=== PATIENT | female | born 2000 | race Caucasian/White ===

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

== ENCOUNTER 2023-11-09 05:48 | Emergency (ER) | payer SELFPAY ==
[2023-11-09] VITALS (39 sets, daily range): BP systolic 117–145; BP diastolic 69–98; PULSE 48–96; RESP 16–18; TEMP 36.2; O2SAT 94–100; BMI 29.5
[2023-11-09] MEDS: ONDANSETRON 4 MG/2 ML INJ IV ×2 (05:57→10:42)
--- NOTE | 2023-11-09 06:05 | ED_ITS ---
HPI - Abdominal Pain <Bailey Yuan, DO - Last Filed: 11/09/23 23:08> General Chief Complaint: Abdominal Pain Stated Complaint: rt side abd pain, throwing up Time Seen by Provider: 11/09/23 05:57 Source: patient and family Mode of arrival: Ambulatory History of Present Illness HPI narrative: Patient is a 23-year-old female without significant past medical history presenting with sudden onset right-sided flank pain. She reports that she woke 430 with severe pain. It seems she radiating from her flank to her groin. She has never had kidney stones before. The pain is so intense she has thrown up a handful of times. She tried to take ibuprofen but ultimately threw that up as. She was fine when she went to bed and having normal day yesterday. He denies any painful frequent urination. Related Data Home Medications Medication Instructions Recorded Confirmed albuterol sulfate 90 mcg/actuation 2 puff INH ##17 05/29/12 aerosol inhaler (Proventil HFA) fluticasone propionate 110 1 puff INH BID ##12 05/29/12 mcg/actuation HFA aerosol inhaler (Flovent HFA) fluticasone propionate 50 50 mcg INH BID #60 doses 05/29/12 mcg/actuation blister powder for inhalation (Flovent Diskus) cetirizine 5 mg tablet ##0 11/02/12 Previous Rx's Medication Instructions Recorded clotrimazole 1 % topical cream 1 applictn topical BID #30 grams 02/26/19 mupirocin 2 % topical ointment 1 applictn topical TID impetigo 02/26/19 #30 grams ondansetron 4 mg disintegrating 4 mg PO TID-QID PRN nausea and 07/22/19 tablet vomiting #10 tabs azithromycin 250 mg tablet See Rx Instructions PO .COMPLEX #6 07/22/20 tabs meloxicam 7.5 mg tablet (Mobic) 7.5 mg PO BID PRN pain #10 tabs 04/23/21 ciprofloxacin HCl 500 mg tablet 500 mg PO Q12H #20 tabs 11/09/23 ondansetron 4 mg disintegrating 4 mg PO QID PRN nausea and 11/09/23 tablet vomiting #10 tabs oxycodone 5 mg tablet 5 mg PO Q6H PRN pain #14 tabs 11/09/23 Allergies Allergy/AdvReac Type Severity Reaction Status Date / Time amoxicillin Allergy Verified 07/21/19 22:39 Patient History <Bailey Bolden DO - Last Filed: 11/09/23 23:08> Medical History (Updated 11/09/23 @ 07:22 by Bailey Bolden DO) Asthma Migraine headache Surgical History No history of previous surgery Social History Smoking Status: Never smoker Smoking Status: Never smoker alcohol intake frequency: other Substance Use Type: does not use Exam <Bailey Bolden DO - Last Filed: 11/09/23 23:08> Initial Vital Signs Initial Vital Signs: Vital Signs Temperature 97.1 F L 11/09/23 05:55 Pulse Rate 57 L 11/09/23 05:55 Respiratory Rate 18 11/09/23 05:55 Blood Pressure 140/95 H 11/09/23 05:55 Pulse Oximetry 99 11/09/23 05:55 Oxygen Delivery Method Room Air 11/09/23 05:55 GENERAL: Alert 23-year-old female appears to be in pain HEENT: Head atraumatic,EOMI, pupils reactive, face symmetric, moist mucous membranes CARDIOVASCULAR: Regular rate and rhythm without murmurs, rubs or gallops. RESPIRATORY: Breath sounds equal bilaterally, no wheezes rales or rhonchi. ABDOMEN: Soft, nontender. Normoactive bowel sounds all 4 quadrants. No guarding or rebound. : Moderate right CVA tenderness EXTREMITIES: Normal range of motion, no clubbing or edema. Neurovascularly intact NEUROLOGICAL: Alert and oriented x4.Normal gait and speech. Cranial nerves II through XII grossly intact. SKIN: Warm, dry, no laceration, no petechiae, no rashes or lesions. <Angelia Villaseñor DO - Last Filed: 11/09/23 18:59> Initial Vital Signs Initial Vital Signs: Vital Signs Temperature 97.1 F L 11/09/23 05:55 Pulse Rate 57 L 11/09/23 05:55 Respiratory Rate 18 11/09/23 05:55 Blood Pressure 140/95 H 11/09/23 05:55 Pulse Oximetry 99 11/09/23 05:55 Oxygen Delivery Method Room Air 11/09/23 05:55 Course <Bailey Bolden, DO - Last Filed: 11/09/23 23:08> Orders Ordered: Discontinued Medications Ciprofloxacin (Ciprofloxacin 250 Mg Tablet) 500 mg PO NOW ONE Stop: 11/09/23 13:32 Last Admin: 11/09/23 13:56 Dose: 500 mg Documented By: HONORIO Sodium Chloride (Normal Saline 0.9%) 1,000 mls @ 1,000 mls/hr IV BOLUS ONE Stop: 11/09/23 07:31 Last Infusion: 11/09/23 07:42 Dose: Infused Documented By: Admin: 11/09/23 06:35 Dose: 1,000 mls/hr Documented By: CAMILO Sodium Chloride (Normal Saline 0.9%) 1,000 mls @ 1,000 mls/hr IV BOLUS ONE Stop: 11/09/23 09:41 Last Infusion: 11/09/23 10:40 Dose: Infused Documented By: Admin: 11/09/23 09:11 Dose: 1,000 mls/hr Documented By: DAWSON Lidocaine HCl 6 ml/ Sodium (Chloride) 56 mls @ 336 mls/hr IV NOW ONE Stop: 11/09/23 09:18 Last Infusion: 11/09/23 10:08 Dose: Infused Documented By: Admin: 11/09/23 09:30 Dose: 336 mls/hr Documented By: DAWSON Lactated Ringer's (Lactated Ringers) 1,000 mls @ 1,000 mls/hr IV BOLUS ONE Stop: 11/09/23 11:04 Last Infusion: 11/09/23 11:45 Dose: Infused Documented By: Admin: 11/09/23 10:30 Dose: 1,000 mls/hr Documented By: HONORIO Acetaminophen (Ofirmev) 1,000 mg in 100 mls @ 400 mls/hr IV NOW ONE Stop: 11/09/23 13:44 Last Infusion: 11/09/23 14:31 Dose: Infused Documented By: Admin: 11/09/23 13:56 Dose: 400 mls/hr Documented By: HONORIO Ketorolac Tromethamine (Ketorolac 30 Mg/Ml Vial) 15 mg IV NOW ONE Stop: 11/09/23 06:11 Last Admin: 11/09/23 06:15 Dose: 15 mg Documented By: PAT Morphine Sulfate (Morphine 4 Mg/Ml Inj) 4 mg IV NOW ONE Stop: 11/09/23 07:35 Last Admin: 11/09/23 07:42 Dose: 4 mg Documented By: DAWSON Ondansetron HCl (Ondansetron 4 Mg Odt) 4 mg PO NOW PRN PRN Reason: Nausea And Vomiting Last Admin: 11/09/23 14:01 Dose: 4 mg Documented By: HONORIO Ondansetron HCl (Ondansetron 4 Mg/2 Ml Inj) 4 mg IV NOW PRN PRN Reason: Nausea And Vomiting Last Admin: 11/09/23 05:57 Dose: 4 mg Documented By: CAMILO Ondansetron HCl (Ondansetron 4 Mg/2 Ml Inj) 4 mg IV NOW ONE Stop: 11/09/23 09:35 Last Admin: 11/09/23 10:42 Dose: 4 mg Documented By: HONORIO Oxycodone/Acetaminophen (Oxycodone/Acetaminophen 5/325 Tablet) 2 tab PO NOW ONE Stop: 11/09/23 14:50 Last Admin: 11/09/23 15:06 Dose: 2 tab Documented By: HONORIO Vital Signs Vital signs: Vital Signs - 8 hr 11/09/23 11:00 11/09/23 11:01 11/09/23 11:01 Pulse Rate 49 L 49 L Blood Pressure 130/78 Pulse Oximetry 100 99 11/09/23 11:15 11/09/23 11:30 11/09/23 11:30 Pulse Rate 50 L 52 L Blood Pressure 136/98 H Pulse Oximetry 99 100 11/09/23 11:45 11/09/23 11:45 11/09/23 11:58 Pulse Rate 54 L 78 Blood Pressure 133/84 Pulse Oximetry 98 97 11/09/23 12:01 11/09/23 12:31 11/09/23 12:32 Pulse Rate 81 66 Blood Pressure 125/83 Pulse Oximetry 100 99 11/09/23 12:32 11/09/23 12:45 11/09/23 12:56 Pulse Rate 66 56 L Blood Pressure 124/84 Pulse Oximetry 97 97 11/09/23 12:56 11/09/23 13:00 11/09/23 13:00 Pulse Rate 58 L Blood Pressure 128/79 136/82 Pulse Oximetry 98 11/09/23 13:15 11/09/23 13:15 11/09/23 13:30 Pulse Rate 58 L 56 L Blood Pressure 123/78 Pulse Oximetry 97 98 11/09/23 13:30 11/09/23 13:45 11/09/23 13:45 Pulse Rate 61 Blood Pressure 124/80 123/80 Pulse Oximetry 98 11/09/23 14:00 11/09/23 14:00 11/09/23 14:15 Pulse Rate 59 L 58 L Blood Pressure 125/79 Pulse Oximetry 98 98 11/09/23 14:15 11/09/23 14:30 11/09/23 14:30 Pulse Rate 72 Blood Pressure 129/79 120/69 Pulse Oximetry 98 11/09/23 14:45 11/09/23 15:00 Pulse Rate 96 H 61 Blood Pressure Pulse Oximetry 98 98 <Angelia Villaseñor, - Last Filed: 11/09/23 18:59> Orders Ordered: Discontinued Medications Ciprofloxacin (Ciprofloxacin 250 Mg Tablet) 500 mg PO NOW ONE Stop: 11/09/23 13:32 Last Admin: 11/09/23 13:56 Dose: 500 mg Documented By: HONORIO Sodium Chloride (Normal Saline 0.9%) 1,000 mls @ 1,000 mls/hr IV BOLUS ONE Stop: 11/09/23 07:31 Last Infusion: 11/09/23 07:42 Dose: Infused Documented By: Admin: 11/09/23 06:35 Dose: 1,000 mls/hr Documented By: CAMILO Sodium Chloride (Normal Saline 0.9%) 1,000 mls @ 1,000 mls/hr IV BOLUS ONE Stop: 11/09/23 09:41 Last Infusion: 11/09/23 10:40 Dose: Infused Documented By: Admin: 11/09/23 09:11 Dose: 1,000 mls/hr Documented By: DAWSON Lidocaine HCl 6 ml/ Sodium (Chloride) 56 mls @ 336 mls/hr IV NOW ONE Stop: 11/09/23 09:18 Last Infusion: 11/09/23 10:08 Dose: Infused Documented By: Admin: 11/09/23 09:30 Dose: 336 mls/hr Documented By: DAWSON Lactated Ringer's (Lactated Ringers) 1,000 mls @ 1,000 mls/hr IV BOLUS ONE Stop: 11/09/23 11:04 Last Infusion: 11/09/23 11:45 Dose: Infused Documented By: Admin: 11/09/23 10:30 Dose: 1,000 mls/hr Documented By: HONORIO Acetaminophen (Ofirmev) 1,000 mg in 100 mls @ 400 mls/hr IV NOW ONE Stop: 11/09/23 13:44 Last Infusion: 11/09/23 14:31 Dose: Infused Documented By: Admin: 11/09/23 13:56 Dose: 400 mls/hr Documented By: HONORIO Ketorolac Tromethamine (Ketorolac 30 Mg/Ml Vial) 15 mg IV NOW ONE Stop: 11/09/23 06:11 Last Admin: 11/09/23 06:15 Dose: 15 mg Documented By: PAT Morphine Sulfate (Morphine 4 Mg/Ml Inj) 4 mg IV NOW ONE Stop: 11/09/23 07:35 Last Admin: 11/09/23 07:42 Dose: 4 mg Documented By: DAWSON Ondansetron HCl (Ondansetron 4 Mg Odt) 4 mg PO NOW PRN PRN Reason: Nausea And Vomiting Last Admin: 11/09/23 14:01 Dose: 4 mg Documented By: HONORIO Ondansetron HCl (Ondansetron 4 Mg/2 Ml Inj) 4 mg IV NOW PRN PRN Reason: Nausea And Vomiting Last Admin: 11/09/23 05:57 Dose: 4 mg Documented By: CAMILO Ondansetron HCl (Ondansetron 4 Mg/2 Ml Inj) 4 mg IV NOW ONE Stop: 11/09/23 09:35 Last Admin: 11/09/23 10:42 Dose: 4 mg Documented By: HONORIO Oxycodone/Acetaminophen (Oxycodone/Acetaminophen 5/325 Tablet) 2 tab PO NOW ONE Stop: 11/09/23 14:50 Last Admin: 11/09/23 15:06 Dose: 2 tab Documented By: HONORIO Vital Signs Vital signs: Vital Signs - 8 hr 11/09/23 11:00 11/09/23 11:01 11/09/23 11:01 Pulse Rate 49 L 49 L Blood Pressure 130/78 Pulse Oximetry 100 99 11/09/23 11:15 11/09/23 11:30 11/09/23 11:30 Pulse Rate 50 L 52 L Blood Pressure 136/98 H Pulse Oximetry 99 100 11/09/23 11:45 11/09/23 11:45 11/09/23 11:58 Pulse Rate 54 L 78 Blood Pressure 133/84 Pulse Oximetry 98 97 11/09/23 12:01 11/09/23 12:31 11/09/23 12:32 Pulse Rate 81 66 Blood Pressure 125/83 Pulse Oximetry 100 99 11/09/23 12:32 11/09/23 12:45 11/09/23 12:56 Pulse Rate 66 56 L Blood Pressure 124/84 Pulse Oximetry 97 97 11/09/23 12:56 11/09/23 13:00 11/09/23 13:00 Pulse Rate 58 L Blood Pressure 128/79 136/82 Pulse Oximetry 98 11/09/23 13:15 11/09/23 13:15 11/09/23 13:30 Pulse Rate 58 L 56 L Blood Pressure 123/78 Pulse Oximetry 97 98 11/09/23 13:30 11/09/23 13:45 11/09/23 13:45 Pulse Rate 61 Blood Pressure 124/80 123/80 Pulse Oximetry 98 11/09/23 14:00 11/09/23 14:00 11/09/23 14:15 Pulse Rate 59 L 58 L Blood Pressure 125/79 Pulse Oximetry 98 98 11/09/23 14:15 11/09/23 14:30 11/09/23 14:30 Pulse Rate 72 Blood Pressure 129/79 120/69 Pulse Oximetry 98 11/09/23 14:45 11/09/23 15:00 Pulse Rate 96 H 61 Blood Pressure Pulse Oximetry 98 98 MDM - Abdominal Pain <Bailey Bolden, DO - Last Filed: 11/09/23 23:08> Lab Data 11/09/23 05:58 11/09/23 05:58 Labs: Lab Results 11/09/23 11/09/23 Range/Units 05:58 12:22 WBC 7.0 (4.5-11.0) X10^3/uL RBC 4.78 (4.0-5.2) X10^6/uL Hgb 14.4 (12.0-16.0) g/dL Hct 42.5 (36-46) % MCV 88.9 (80-100) fL MCH 30.2 (26-34) PG MCHC 34.0 (30-36) % RDW 13.2 (11.6-14.8) % Plt Count 247 (150-400) X10^3/uL Neut % (Auto) 60.9 (50-75) % Lymph % (Auto) 25.7 (25-40) % [place] % (Auto) 10.3 (3-14) % Eos % (Auto) 2.5 (2-4) % Baso % (Auto) 0.6 (0-2) % Neut # (Auto) 4200 (5332-1280) /uL Lymph # (Auto) 1800 (7928-0829) /uL [place] # (Auto) 700 (0-900) /uL Eos # (Auto) 200 (0-450) /uL Baso # (Auto) 0 (0-100) /uL Sodium 139 (137-145) mmol/L Potassium 3.3 L (3.4-5.1) mmol/L Chloride 105 (98-107) mmol/L Carbon Dioxide 22 (22-32) mmol/L BUN 8 (7-17) mg/dL Creatinine 0.75 (0.52-1.04) mg/dL Estimated GFR > 60 (>60) mL/min BUN/Creatinine Ratio 10.7 (6-22) Glucose 107 H (70-100) mg/dL Calcium 9.6 (8.4-10.2) mg/dL Total Bilirubin 0.8 (0.2-1.3) mg/dL AST 22 (14-36) IU/L ALT 22 (<35) IU/L Alkaline Phosphatase 58 (38-126) U/L Total Protein 7.6 (6.3-8.2) g/dL Albumin 4.5 (3.5-5.0) g/dL Globulin 3.1 (1.7-4.1) g/dL Albumin/Globulin Ratio 1.5 (1.0-2.8) Lipase 60 (23-300) U/L Serum , Qual Negative (Negative) Ur Bilirubin Confirm TNP Urine RBC 30-100/hpf H (0-5/HPF) Urine WBC 30-100/hpf H (0-5/HPF) Ur Squamous Epith Cells 0-1 /hpf (0-5/HPF) Urine Bacteria Occasional (0-1) (None) Ur Culture Indicated? Specimen cultured Vol Urine Centrifuged 10ml (spun) Point of care testing: Point of Care Testing Test Results Negative Urine Dip Bedside Urine Glucose Negative Bedside Urine Bilirubin + 1 Bedside Urine Ketone +++ 80 Urine Specific [place] 1.030 Bedside Urine Occult Blood +++ Bedside Urine pH 6.0 Bedside Urine Protein ++ 100 Bedside Urine Urobilinogen - Negative Bedside Urine Nitrite - Negative Bedside Urine Leukocytes +/- [address] scan - abdomen/pelvis: Radiologist's Impression: Preliminary report moderate right hydro ureteral nephrosis and perinephric periureteral inflammatory changes with an obstructing 2 mm proximal ureteral calculus. Additional nonobstructing bilateral in intrarenal calculi measuring 2 mm. MDM Narrative Medical decision making narrative: Patient 23-year-old female presents today with sudden onset right-sided flank pain radiating to her abdomen. She received Toradol initially but still complaining quite a bit of pain. Blood work has been reviewed without any evidence leukocytosis anemia potassium slightly low at 3.3 creatinine 0.71, serum negative CT preliminary report reviewed and confirmed 2 mm right-sided nephrolithiasis Patient received 1 L of IV fluids but has not yet urinated. Patient signed out to Dr. Villaseñor for further disposition. 23-year-old female with history of tonsillectomy no other reported medical issues found to have kidney stone 2-3 mm right proximal stone with [id number] right-sided hydro proximal hydroureter and mild right perinephric fat stranding additional nonobstructing stones bilateral kidneys. Normal-appearing bladder. Patient had Toradol, morphine fluids and Zofran was feeling somewhat improved but still having some pain. Had not made any urine had 18 mL on bladder scan. Had 2 L ordered and was orally hydrated and threw up again. Still has some pain. We will give a dose of lidocaine IV. Patient's labs overall are fairly appropriate white count of 7, hemoglobin of 14 with platelets of 247. Chemistry shows sodium 139 potassium of 3.3 chloride of 105 with a CO2 of 22 BUN 8 creatinine of 0.75 glucose was 107 otherwise negative LFTs negative serum . Patient was seen and evaluated independently by myself states no major medical issues has had prior tonsillectomy and states she had to be ?knocked out? for IUD placement. Patient states she has never had kidney stones before. She states she was throwing up prior to arrival and initially that improved for quite some time but has since returned after orally hydrating pain increasing again. X2 additional fluids, pain medication antinausea patient is able to tolerate give a urine we will see if she is possible for discharge if she has not able to keep things down then may have to keep for admission. Patient did not make any urine for approximately 6 hours after 3 L of fluid. She did attempt. We did ultimately put a Avalos catheter in her and she had 150 but had bladder scans in between that showed 25 and 15 mL respectively. Patient had 150 mL out with the Avalos catheter. Spoke with Dr. Quiroz reviewed her findings her urine she does have white cells, bacteria, red cells does not appear septic. If able to tolerate oral medication and pain could go home on oral antibiotics, Flomax but if patient continues to vomit or unable to tolerate to re-contact for admission. Patient received a dose of IV Tylenol, still had some discomfort and had some oral narcotic as well. She and I discussed her findings if she is able to tolerate oral medications could discharge home which she is agreeable to if not would need to stay. Patient had oral antibiotic dose of Zofran and oral pain medication. Patient was able to tolerate and did not have any vomiting for at least an hour and felt appropriate for discharge home at this time. We discussed return precautions and that if patient's persistently vomiting, has fevers or is worsening on needs to return for admission and treatment. <Angelia Villaseñor, DO - Last Filed: 11/09/23 18:59> Lab Data Labs: Lab Results 11/09/23 11/09/23 Range/Units 05:58 12:22 WBC 7.0 (4.5-11.0) X10^3/uL RBC 4.78 (4.0-5.2) X10^6/uL Hgb 14.4 (12.0-16.0) g/dL Hct 42.5 (36-46) % MCV 88.9 (80-100) fL MCH 30.2 (26-34) PG MCHC 34.0 (30-36) % RDW 13.2 (11.6-14.8) % Plt Count 247 (150-400) X10^3/uL Neut % (Auto) 60.9 (50-75) % Lymph % (Auto) 25.7 (25-40) % [place] % (Auto) 10.3 (3-14) % Eos % (Auto) 2.5 (2-4) % Baso % (Auto) 0.6 (0-2) % Neut # (Auto) 4200 (4356-9672) /uL Lymph # (Auto) 1800 (8967-9907) /uL [place] # (Auto) 700 (0-900) /uL Eos # (Auto) 200 (0-450) /uL Baso # (Auto) 0 (0-100) /uL Sodium 139 (137-145) mmol/L Potassium 3.3 L (3.4-5.1) mmol/L Chloride 105 (98-107) mmol/L Carbon Dioxide 22 (22-32) mmol/L BUN 8 (7-17) mg/dL Creatinine 0.75 (0.52-1.04) mg/dL Estimated GFR > 60 (>60) mL/min BUN/Creatinine Ratio 10.7 (6-22) Glucose 107 H (70-100) mg/dL Calcium 9.6 (8.4-10.2) mg/dL Total Bilirubin 0.8 (0.2-1.3) mg/dL AST 22 (14-36) IU/L ALT 22 (<35) IU/L Alkaline Phosphatase 58 (38-126) U/L Total Protein 7.6 (6.3-8.2) g/dL Albumin 4.5 (3.5-5.0) g/dL Globulin 3.1 (1.7-4.1) g/dL Albumin/Globulin Ratio 1.5 (1.0-2.8) Lipase 60 (23-300) U/L Serum , Qual Negative (Negative) Ur Bilirubin Confirm TNP Urine RBC 30-100/hpf H (0-5/HPF) Urine WBC 30-100/hpf H (0-5/HPF) Ur Squamous Epith Cells 0-1 /hpf (0-5/HPF) Urine Bacteria Occasional (0-1) (None) Ur Culture Indicated? Specimen cultured Vol Urine Centrifuged 10ml (spun) Point of care testing: Point of Care Testing Test Results Negative Urine Dip Bedside Urine Glucose Negative Bedside Urine Bilirubin + 1 Bedside Urine Ketone +++ 80 Urine Specific [place] 1.030 Bedside Urine Occult Blood +++ Bedside Urine pH 6.0 Bedside Urine Protein ++ 100 Bedside Urine Urobilinogen - Negative Bedside Urine Nitrite - Negative Bedside Urine Leukocytes +/- 15 Esterase MDM Narrative Medical decision making narrative: 23-year-old female with history of tonsillectomy no other reported medical issues found to have kidney stone 2-3 mm right proximal stone with [id number] right-sided hydro proximal hydroureter and mild right perinephric fat stranding additional nonobstructing stones bilateral kidneys. Normal-appearing bladder. Patient had Toradol, morphine fluids and Zofran was feeling somewhat improved but still having some pain. Had not made any urine had 18 mL on bladder scan. Had 2 L ordered and was orally hydrated and threw up again. Still has some pain. We will give a dose of lidocaine IV. Patient's labs overall are fairly appropriate white count of 7, hemoglobin of 14 with platelets of 247. Chemistry shows sodium 139 potassium of 3.3 chloride of 105 with a CO2 of 22 BUN 8 creatinine of 0.75 glucose was 107 otherwise negative LFTs negative serum . Patient was seen and evaluated independently by myself states no major medical issues has had prior tonsillectomy and states she had to be ?knocked out? for IUD placement. Patient states she has never had kidney stones before. She states she was throwing up prior to arrival and initially that improved for quite some time but has since returned after orally hydrating pain increasing again. X2 additional fluids, pain medication antinausea patient is able to tolerate give a urine we will see if she is possible for discharge if she has not able to keep things down then may have to keep for admission. Patient did not make any urine for approximately 6 hours after 3 L of fluid. She did attempt. We did ultimately put a Avalos catheter in her and she had 150 but had bladder scans in between that showed 25 and 15 mL respectively. Patient had 150 mL out with the Avalos catheter. Spoke with Dr. Quiroz reviewed her findings her urine she does have white cells, bacteria, red cells does not appear septic. If able to tolerate oral medication and pain could go home on oral antibiotics, Flomax but if patient continues to vomit or unable to tolerate to re-contact for admission. Patient received a dose of IV Tylenol, still had some discomfort and had some oral narcotic as well. She and I discussed her findings if she is able to tolerate oral medications could discharge home which she is agreeable to if not would need to stay. Patient had oral antibiotic dose of Zofran and oral pain medication. Patient was able to tolerate and did not have any vomiting for at least an hour and felt appropriate for discharge home at this time. We discussed return precautions and that if patient's persistently vomiting, has fevers or is worsening on needs to return for admission and treatment. Discharge Plan Departure Patient Disposition: Home Clinical Impression: Calculus of kidney Instructions: DI for Kidney Stones Activity Restrictions/Additional Instructions: 2-3 mm right ureteral stone or kidney stone. Your urine shows some signs of infection but you do not appear to be septic today. Please call to set up follow up with Urology, contact information is included below. Take Flomax once daily until gone. You may take Zofran 1 tablet every 6 hours as needed for nausea. Take oral antibiotics until completed. You may take Tylenol up to a 1000 mg every 6 hours and/or ibuprofen up to 600 mg every 6 hours. If inadequate for pain you can take 1-2 tablets of narcotic pain medication every 6 hours as needed. This medication can make you sleepy do not drive, perform hazardous activities or make any major decisions while taking it. This medication will make you constipated please take a stool softener once to twice daily until stools are soft and regular. Prescription sent to [facility] in [place]. Please return to the ER for fevers, persistent vomiting, rapidly worsening abdominal back or flank pain, inability to urinate, black or bloody stools or other new or concerning changes. Prescriptions: New ondansetron 4 mg tablet,disintegrating 4 mg PO QID PRN (Reason: nausea and vomiting) Qty: 10 0RF ciprofloxacin HCl 500 mg tablet 500 mg PO Q12H Qty: 20 0RF oxycodone 5 mg tablet 5 mg PO Q6H PRN (Reason: pain) Qty: 14 0RF No Action fluticasone propionate [Flovent Diskus] 50 MCG blister with device 50 mcg INH BID Qty: 60 albuterol sulfate [Proventil HFA] 90 MCG/PUFF HFA aerosol inhaler 2 puff INH Qty: 17 fluticasone propionate [Flovent HFA] 12 GM HFA aerosol inhaler 1 puff INH BID Qty: 12 cetirizine 5 MG tablet Qty: 0 mupirocin 2 % ointment 1 applictn TOP TID Qty: 30 0RF Rx Instructions: apply to skin around lips t.i.d. clotrimazole 1 % cream 1 applictn TOP BID Qty: 30 0RF Rx Instructions: apply around lips/at corners b.id azithromycin 250 mg tablet See Rx Instructions .ROUTE .COMPLEX Qty: 6 0RF Rx Instructions: take 500 mg today (day 1), then 250 mg for 4 days (days 2-5) ondansetron 4 mg tablet,disintegrating 4 mg PO TID-QID PRN (Reason: nausea and vomiting) Qty: 10 0RF meloxicam [Mobic] 7.5 mg tablet 7.5 mg PO BID PRN (Reason: pain) Qty: 10 0RF Referrals: Libby Ha PA-C [Primary Care Provider] - Aldo Quiroz MD [Physician] - Stand Alone Forms: Patient Portal/API, Work Release Note
[2023-11-09 06:09] LABS: Add Manual Diff / Slide Review NO; Basophils Absolute Auto 0 /uL (0-100); Basophils Percent Auto 0.6 % (0-2); Eosinophils Absolute Auto 200 /uL (0-450); Eosinophils Percent Auto 2.5 % (2-4); Hematocrit 42.5 % (36-46); Hemoglobin 14.4 g/dL (12.0-16.0); Lymphocytes Absolute Auto 1800 /uL (1100-4500); Lymphocytes Percent Auto 25.7 % (25-40); Mean Corpuscular Hemoglobin 30.2 PG (26-34); Mean Corpuscular Volume 88.9 fL (80-100); Monocytes Absolute Auto 700 /uL (0-900); Monocytes Percent Auto 10.3 % (3-14); Neutrophils Absolute Auto 4200 /uL (1500-7000); Neutrophils Percent Auto 60.9 % (50-75); Platelet Count 247 X10^3/uL (150-400); Red Blood Cell Count 4.78 X10^6/uL (4.0-5.2); Red Cell Distribution Width 13.2 % (11.6-14.8)
--- NOTE | 2023-11-09 06:10 | DI.CT.S_ITS ---
PROCEDURE: CT KIDNEY URETER BLADDER (KUB) INDICATIONS: right flank pain TECHNIQUE: Axial sections were acquired from the lung bases to the pubic symphysis. Coronal and sagittal reformats were performed. For radiation dose reduction, the following was used: automated exposure control, adjustment of mA and/or kV according to patient size. COMPARISON: None. FINDINGS: Image quality: Diagnostic. Lower Chest: No significant findings. URINARY: Right Kidney: Nonobstructing stones are seen scattered in right renal parenchyma measures 2-3 mm in size. There is [id number] right-sided hydronephrosis and mild right perinephric fat stranding. Right Ureter: 3 mm stone is seen in proximal right ureter approximately 2.7 cm distal to the right UPJ. More distal right ureter is normal in size. Left Kidney: Tiny 1-2 mm nonobstructing stones are noted in left kidney. No left-sided hydronephrosis . Left Ureter: No left-sided hydroureter. Bladder: Normal wall thickness. No stones. ABDOMEN: Liver: No contour-deforming solid mass. Gallbladder: No radiopaque gallstones or wall thickening. Biliary ducts: No biliary dilation. Pancreas: No ductal dilation. Spleen: Size is within normal limits. Adrenal Glands: No adrenal nodules. Stomach and Bowel: There is no bowel obstruction. No abnormal bowel wall thickening or mesenteric fat stranding. Appendix is visualized and is within normal limits. No abscess collection. Peritoneum: No abnormal intraperitoneal fluid. No free air. Ventral Wall: No hernia. Abdominal Nodes: No enlarged retroperitoneal or mesenteric lymph nodes. Vessels: Aorta and inferior vena cava are normal in size. PELVIS: Pelvic Organs: Intrauterine device is noted within its central endometrial location. No abnormality is seen in uterus and bilateral adnexa. Pelvic Nodes: Unremarkable. Miscellaneous: No inguinal hernias are seen. Bones: No suspicious bony lesions. No acute vertebral body compression fracture. IMPRESSION: 1. 2-3 mm right proximal ureteral stone with [id number] right-sided hydronephrosis and proximal hydroureter and mild right perinephric fat stranding. 2. Additional nonobstructing stones are seen in bilateral kidneys. No left-sided hydronephrosis or hydroureter. Normal appearing urinary bladder. 3. No bowel obstruction or abnormal bowel wall thickening. No free fluid or free air. Normal appendix. No significant discrepancies from preliminary reading. Dictated by: Josh Hudson M.D. on 11/09/2023 at 8:08 Approved by: Josh Hudson M.D. on 11/09/2023 at 8:14
[2023-11-09] MEDS: KETOROLAC 30 MG/ML VIAL 15 MG IV (06:15)
[2023-11-09 06:17] LABS: Alanine Aminotransferase 22 IU/L (<35); Albumin 4.5 g/dL (3.5-5.0); Albumin Globulin Ratio 1.5 (1.0-2.8); Alkaline Phosphatase 58 U/L (38-126); Aspartate Aminotransferase 22 IU/L (14-36); BUN Creatinine Ratio 10.7 (6-22); Bilirubin Total 0.8 mg/dL (0.2-1.3); Blood Urea Nitrogen 8 mg/dL (7-17); Calcium 9.6 mg/dL (8.4-10.2); Carbon Dioxide 22 mmol/L (22-32); Chloride 105 mmol/L (98-107); Estimated Glomerular Filt Rate > 60 mL/min (>60); Globulin 3.1 g/dL (1.7-4.1); Glucose 107 mg/dL (70-100); HEMOLYSIS < 15 (0-50); Lipase 60 U/L (23-300); Potassium 3.3 mmol/L (3.4-5.1); Sodium 139 mmol/L (137-145); Total Protein 7.6 g/dL (6.3-8.2)
[2023-11-09] MEDS: SODIUM CHLORIDE 0.9% 1,000 ML 1000 ML IV ×2 (06:35→09:11)
[2023-11-09 06:42] LABS: Pregnancy Test Serum,Qual Negative (Negative)
[2023-11-09] MEDS: MORPHINE 4 MG/ML INJ IV (07:42)
[2023-11-09] MEDS: LIDOCAINE 2% (PF) 6 ML in SODIUM CHLORIDE 0.9% 50 ML 336 ML IV (09:30)
[2023-11-09] MEDS: LACTATED RINGERS 1,000 ML 1000 ML IV (10:30)
[2023-11-09 12:58] LABS: Bacteria Urine Occasional (0-1); Culture Indicated Urine Specimen Cultured; RBC Urine 30-100/HPF (0-5/HPF); Squamous Epithelial Cell Urine 0-1 /HPF (0-5/HPF); Urine Volume 10mL (spun); WBC Urine 30-100/HPF (0-5/HPF)
[2023-11-09] MEDS: ACETAMINOPHEN IV 1,000 MG/100 ML VIAL 400 MG IV (13:56)
[2023-11-09] MEDS: CIPROFLOXACIN 250 MG TABLET 500 MG PO (13:56)
[2023-11-09] MEDS: ONDANSETRON 4 MG ODT PO (14:01)
[2023-11-09] MEDS: OXYCODONE/ACETAMINOPHEN 5/325 TABLET 2 TAB PO (15:06)
== END 2023-11-09 15:25 | disposition home or self-care (01) ==
PROVIDERS: Emergency Medicine; Emergency Provider Emergency Medicine; PCP Physician Assistant Medical
DX: N20.0 Calculus of kidney (principal)
CPT/HCPCS: 36415; 51798; 74176; 80053; 81003; 81015; 81025; 83690; 84703; 85025; 87086; 96361; 96365; 96367; 96375; 96376; 99284; J0136; J1885; J2270; J2405